=== PATIENT | female | born 1985 | race Caucasian/White ===

== ENCOUNTER 2022-08-02 16:05 | Emergency (ER) | payer OTHER ==
[~2022-08-02] VITALS: Ht 162.6 cm; Wt 52.2 kg
[~2022-08-02 16:05] MED LIST: AZATHIOPRINE PO; HYDROCODONE-AP1 EAC1; PROPRANOLOL; SYMBICORT 160-4.6 GM; Z.0.CELEBREX200 MG PO; Z.0.DEXILANT30 MG PO; Z.0.FOSAMAX70 MG PO; Z.0.NEURONTIN300 MG PO; Z.0.PLAQUENIL200 MG PO; Z.0.PREDNISONE10 MG PO; Z.0.VESICARE10 MG PO; Z.0.XYZAL5 MG PO
[2022-08-02] MEDS ORDERED: ONDANSETRON HCL INJ 2MG/ML 2ML 2 MG/ML VIAL IV PRN (16:45)
[2022-08-02 17:10] LABS: BASOPHILS # (AUTO) 0.1 (0.0-0.1); EOSINOPHILS # (AUTO) 0.1 (0.0-0.4); EOSINOPHILS % 0.8 % (0.0-6.0); HEMATOCRIT 46.2 % (34.2-44.1); HEMOGLOBIN 15.1 g/dL (12.0-16.0); LYMPHOCYTES # (AUTO) 2.6 (1.0-3.2); LYMPHOCYTES % 33.5 % (18.0-39.1); MEAN CORPUSCULAR HEMOGLOBIN 28.7 pg (28-32); MEAN CORPUSCULAR HGB CONC 32.7 g/dL (31-35); MEAN CORPUSCULAR VOLUME 87.7 fL (81-99); MONOCYTES # (AUTO) 0.4 (0.2-0.8); MONOCYTES % 4.8 % (4.4-11.3); NEUTROPHILS # (AUTO) 4.7 (2.1-6.9); NEUTROPHILS % 59.6 % (38.7-80.0); PLATELET COUNT 369 x10e3/uL (140-360); RED BLOOD COUNT 5.27 x10e6/uL (3.6-5.1); RED CELL DISTRIBUTION WIDTH 12.5 % (11.7-14.4)
[2022-08-02 17:12] LABS: CLARITY,URINE CLEAR (CLEAR); COLOR,URINE YELLOW (YELLOW); KETONES,URINE NEGATIVE (NEGATIVE); LEUKOCYTE ESTERASE ,URINE NEGATIVE (NEGATIVE); NITRITE,URINE NEGATIVE (NEGATIVE); PROTEIN,URINE DIPSTICK NEGATIVE (NEGATIVE); URINE UROBILINOGEN 0.2 mg/dL (0.2 - 1)
[2022-08-02 17:22] LABS: BACTERIA,URINE FEW /HPF; EPITHELIAL CELLS,URINE FEW /LPF; RBC,URINE 0-5 /HPF (0-5); WBC,URINE (MAN) 0-5 /HPF (0-5)
[2022-08-02 17:25] LABS: ALBUMIN 4.7 g/dL (3.5-5.0); ALBUMIN/GLOBULIN RATIO 1.5 (0.8-2.0); ANION GAP 15.3 mmol/L (8-16); CALCIUM 9.1 mg/dL (8.4-10.2); CREATININE, SERUM 0.81 mg/dL (0.57-1.11); POTASSIUM 3.3 mmol/L (3.5-5.1)
[2022-08-02 17:40] LABS: AMPHETAMINES SCREEN,URINE NEGATIVE (NEGATIVE); BENZODIAZEPINES SCREEN,URINE NEGATIVE (NEGATIVE); PHENCYCLIDINE SCREEN,URINE NEGATIVE (NEGATIVE)
[2022-08-02] MEDS ORDERED: IOPAMIDOL 370 MG/ML 100 ML INFUS..BTL INJ ONE (17:49)
[2022-08-02] MEDS ORDERED: IBUPROFEN600 MG PO (18:34)
== END 2022-08-02 18:44 | disposition home or self-care (01) ==
LOC: ER 16:26
DX: R10.30 Lower abdominal pain, unspecified (principal); R30.0 Dysuria; F60.4 Histrionic personality disorder; R11.0 Nausea; M32.9 Systemic lupus erythematosus, unspecified; M34.9 Systemic sclerosis, unspecified; G47.30 Sleep apnea, unspecified
CPT/HCPCS: 36415; 74177; 80053; 80307; 81001; 84702; 85025; 99284; Q9967

== ENCOUNTER 2023-08-24 09:27 | Emergency (ER) | payer OTHER ==
[~2023-08-24] VITALS: Ht 165.1 cm; Wt 43.1 kg
[~2023-08-24 09:27] MED LIST changes: +IBUPROFEN600 MG PO
[2023-08-24 09:50] VITALS: O2SAT 99
[2023-08-24] MEDS ORDERED: ONDANSETRON HCL INJ 2MG/ML 2ML 2 MG/ML VIAL ONE (09:59)
[2023-08-24] MEDS ORDERED: SODIUM CHLORIDE 0.9% 1000ML 1,000 ML ONE (10:00)
[2023-08-24] MEDS ORDERED: FAMOTIDINE 20 MG/2 ML VIAL IV ONE (10:00)
[2023-08-24] MEDS ORDERED: ONDANSETRON HCL 4 MG ORAL DISINTEGRATING TAB ONE (10:07)
[2023-08-24] MEDS ORDERED: ONDANSETRON ODT4 MG PO (10:27)
[2023-08-24] MEDS ORDERED: ONDANSETRON HCL 4 MG ORAL DISINTEGRATING TAB PO ONE (10:30)
== END 2023-08-24 10:35 | disposition home or self-care (01) ==
LOC: FSED 09:44
DX: R11.2 Nausea with vomiting, unspecified (principal); S00.521A Blister (nonthermal) of lip, initial encounter; S39.012A Strain of muscle, fascia and tendon of lower back, initial encounter; R46.2 Strange and inexplicable behavior; M32.9 Systemic lupus erythematosus, unspecified; M35.9 Systemic involvement of connective tissue, unspecified; G47.30 Sleep apnea, unspecified
CPT/HCPCS: 81003; 81025; 99282; J2405; J7030; Q0162

== ENCOUNTER 2024-03-14 21:56 | Emergency (ER) | payer MEDICAID ==
[~2024-03-14] VITALS: Ht 160 cm; Wt 84.8 kg
[~2024-03-14 21:56] MED LIST changes: +ONDANSETRON ODT4 MG PO
[2024-03-14] MEDS: SODIUM CHLORIDE 0.9% 1000ML 2,000 ML IV STA (23:35)
[2024-03-14 23:50] LABS: BASOPHILS # (AUTO) 0.1 (0.0-0.1); BASOPHILS % 0.9 % (0.0-1.0); EOSINOPHILS # (AUTO) 0.1 (0.0-0.4); EOSINOPHILS % 1.9 % (0.0-6.0); HEMATOCRIT 37.9 % (34.2-44.1); HEMOGLOBIN 12.5 g/dL (12.0-16.0); LYMPHOCYTES # (AUTO) 1.8 (1.0-3.2); LYMPHOCYTES % 33.7 % (18.0-39.1); MEAN CORPUSCULAR HEMOGLOBIN 29.2 pg (28-32); MEAN CORPUSCULAR VOLUME 88.6 fL (81-99); MONOCYTES # (AUTO) 0.3 (0.2-0.8); MONOCYTES % 5.7 % (4.4-11.3); NEUTROPHILS % 57.6 % (38.7-80.0); PLATELET COUNT 243 x10e3/uL (140-360); RED BLOOD COUNT 4.28 x10e6/uL (3.6-5.1); RED CELL DISTRIBUTION WIDTH 12.6 % (11.7-14.4); WHITE BLOOD COUNT 5.28 x10e3/uL (4.8-10.8)
[2024-03-15 00:05] LABS: ALBUMIN 3.8 g/dL (3.5-5.0); ALBUMIN/GLOBULIN RATIO 1.3 (0.8-2.0); ANION GAP 13.3 mmol/L (8-16); BILIRUBIN,TOTAL 0.2 mg/dL (0.2-1.2); CREATININE, SERUM 0.66 mg/dL (0.57-1.11); TOTAL PROTEIN 6.8 g/dL (6.5-8.1)
[2024-03-15 00:10] LABS: CLARITY,URINE CLEAR (CLEAR); COLOR,URINE YELLOW (YELLOW); GLUCOSE, URINE NEGATIVE (NEGATIVE); LEUKOCYTE ESTERASE ,URINE NEGATIVE (NEGATIVE); NITRITE,URINE NEGATIVE (NEGATIVE); PH,URINE 6.5 (5 - 7); PROTEIN,URINE DIPSTICK NEGATIVE (NEGATIVE)
[2024-03-15 00:11] LABS: BILIRUBIN,URINE NEGATIVE (NEGATIVE); KETONES,URINE NEGATIVE (NEGATIVE); PREGNANCY TEST, URINE NEGATIVE (NEGATIVE); TROPONIN I 0.008 ng/mL (0-0.300); URINE UROBILINOGEN 0.2 mg/dL (0.2 - 1)
[2024-03-15 00:13] LABS: BACTERIA,URINE MODERATE /HPF; EPITHELIAL CELLS,URINE MODERATE /LPF; RBC,URINE 0-5 /HPF (0-5)
[2024-03-15 00:15] LABS: POTASSIUM 3.3 mmol/L (3.5-5.1)
[2024-03-15 02:20] VITALS: BP 115/72; PULSE 71; RESP 19; TEMP 98.2; O2SAT 99
[2024-03-15 03:13] LABS: AMPHETAMINES SCREEN,URINE NEGATIVE (NEGATIVE); BENZODIAZEPINES SCREEN,URINE NEGATIVE (NEGATIVE); CANNABINOIDS SCREEN,URINE NEGATIVE (NEGATIVE); METHADONE SCREEN, URINE NEGATIVE (NEGATIVE); OPIATES SCREEN,URINE NEGATIVE (NEGATIVE); PHENCYCLIDINE SCREEN,URINE NEGATIVE (NEGATIVE)
== END 2024-03-15 02:49 | disposition home or self-care (01) ==
LOC: ER 22:19
DX: R06.02 Shortness of breath (principal); M79.10 Myalgia, unspecified site; R46.89 Other symptoms and signs involving appearance and behavior; M32.9 Systemic lupus erythematosus, unspecified; G47.30 Sleep apnea, unspecified; Z11.52 Encounter for screening for COVID-19; Z85.3 Personal history of malignant neoplasm of breast
CPT/HCPCS: 36415; 71045; 80053; 80307; 81001; 81025; 82550; 83690; 83880; 84484; 85025; 93005; 99284; J7030; U0002